=== PATIENT | male | born 1945 | race Hispanic/Latino ===

== ENCOUNTER 2017-04-15 18:06 | Emergency (ER) | payer MEDICARE ==
[2017-04-15 19:39] VITALS: BP 142/80
[2017-04-15 20:40] LABS: Hematocrit 37.5 % (35.5-45.6); Hemoglobin 12.7 gm/dl (11.8-15.2); Mean Corpuscular HGB Conc 34 % (32-34); Mean Corpuscular Hemoglobin 30 pg (28-32); Mean Corpuscular Volume 89 fl (84-94); Platelet Count 322 K/mm3 (140-440); Red Blood Count 4.23 M/mm3 (3.65-5.03); Red Cell Distribution Width 13.4 % (13.2-15.2); White Blood Count 6.4 K/mm3 (4.5-11.0)
[2017-04-15 20:57] LABS: Alanine Aminotransferase 10 units/L (7-56); Albumin 3.7 g/dL (3.9-5); Albumin/Globulin Ratio 1.2 %; Alkaline Phosphatase 87 units/L (35-129); Anion Gap 16 mmol/L; Bilirubin,Total < 0.20 mg/dL (0.1-1.2); Blood Urea Nitrogen 18 mg/dL (9-20); Calcium 8.9 mg/dL (8.4-10.2); Carbon Dioxide 25 mmol/L (22-30); Chloride 100.4 mmol/L (98-107); Glucose 113 mg/dL (75-100); Potassium 4.8 mmol/L (3.6-5.0); Sodium 137 mmol/L (137-145); Total Protein 6.8 g/dL (6.3-8.2)
[2017-04-15 21:16] LABS: Blastocytes % (Manual) 0 %
[2017-04-15 21:17] LABS: Basophils % (Manual) 0 % (0.0-1.8); Diff Status Complete; RBC Morphology Normal
== END 2017-04-15 22:15 | disposition left against medical advice (07) ==
LOC: ED 18:06
DX: E16.2 Hypoglycemia, unspecified (principal); Z53.21 Procedure and treatment not carried out due to patient leaving prior to being seen by health care provider
CPT/HCPCS: 36415; 80053; 82962; 85007; 85025